=== PATIENT | female | born 1990 | race Caucasian/White ===

== ENCOUNTER 2018-05-16 10:23 | Outpatient (CLI) | payer OTHER ==
[2018-05-16 11:04] LABS: BASOPHILS % (AUTO) 0.5 % (0.0-2.0); EOSINOPHILS # (AUTO) 0.2 K/uL (0-0.4); EOSINOPHILS % (AUTO) 3.6 % (0.0-4.0); HEMATOCRIT 39.7 % (36-48); LYMPHOCYTES # (AUTO) 1.4 K/uL (2.5-16.5); MEAN CORPUSCULAR HEMOGLOBIN 29 pg (27-31); MEAN CORPUSCULAR HGB CONC 33 g/dL (33-37); MEAN CORPUSCULAR VOLUME 88.2 fL (80-94); MONOCYTES # (AUTO) 0.4 K/uL (0.8-1.0); MONOCYTES % (AUTO) 5.8 % (1.7-9.3); NEUTROPHILS # (AUTO) 4.4 K/uL (1.8-7.7); NEUTROPHILS % (AUTO) 68.1 % (42.2-75.2); PLATELET COUNT (AUTO) 234 K/uL (140-450); RED CELL DISTRIBUTION WIDTH 14.2 % (11.6-13.7); WHITE BLOOD COUNT (AUTO) 6.4 K/uL (4.8-10.8)
[2018-05-16 11:25] LABS: ALBUMIN 3.7 g/dL (3.4-5.0); ANION GAP 9.4 (8-16); CARBON DIOXIDE 29.5 mmol/L (21-32); CHOL/HDL RATIO 2.4 (1-4.5); CREATININE 0.7 mg/dL (0.6-1.3); FREE T4 (FREE THYROXINE) 1.02 ng/dL (0.76-1.46); POTASSIUM 3.9 mmol/L (3.5-5.1); THYROID STIMULATING HORMONE 0.58 uIU/mL (0.34-3.74); TOTAL BILIRUBIN 0.3 mg/dL (0.0-1.0)
[2018-05-16 11:37] LABS: BILIRUBIN,URINE NEGATIVE (NEGATIVE); COLOR,URINE YELLOW (YELLOW); LEUKOCYTE ESTERASE ,URINE 1+ (NEGATIVE); NITRITE, URINE NEGATIVE (NEGATIVE); UGLUCOSE NEGATIVE (NEGATIVE)
[2018-05-16 11:42] LABS: BLOOD, URINE 1+ (NEGATIVE); RBC,URINE 0-5 (RARE) /HPF (0-5); WBC,URINE 0-5 (RARE) /HPF (0-5)
[2018-05-16 11:44] LABS: APPEARANCE,URINE SLIGHTLY HAZY (CLEAR)
== END 2018-05-16 16:56 | disposition home or self-care (01) ==
LOC: MLB 10:23
PROVIDERS: ATTEND Family Medicine Geriatric Medicine
DX: Z13.1 Encounter for screening for diabetes mellitus (principal); Z13.228 Encounter for screening for other metabolic disorders; Z13.21 Encounter for screening for nutritional disorder; Z13.0 Encounter for screening for diseases of the blood and blood-forming organs and certain disorders involving the immune mechanism; Z13.220 Encounter for screening for lipoid disorders
CPT/HCPCS: 36415; 80053; 81001; 82306; 83036; 84439; 84443; 85025; 87086

== ENCOUNTER 2018-09-07 18:22 | Emergency (ER) | payer OTHER ==
[~2018-09-07] VITALS: Ht 157.5 cm; Wt 73.0 kg
[2018-09-07 18:27] VITALS: BP 132/83
--- NOTE | 2018-09-07 18:34 | NUR ---
27 Y FEMALE BIB SELF AND REPORTS SHE HAS 2 CAVITIES AND ISN'T ABLE TO SEE THE DENTIST UNTIL TOMORROW. PT REPORTS INTERMITENT SHARP/THROBING PAIN IS AT 7/10 THAT RADIATES UP TO FOREHEAD. PT TX WITH IBUPROFEN WITH LITTLE RELIEF. VSS AT THIS TIME. PT [id number]. BED IS DOWN, LOCKED, BED RAIL X 1 ,ERMD TO SEE PT. MEDHX:DENIES RX:IBUPROFEN, ABX
--- NOTE | 2018-09-07 18:40 | NUR ---
DR CARVER AT BEDSIDE
--- NOTE | 2018-09-07 18:48 | NUR ---
Patient discharged with v/s stable. Written and verbal after care instructions given and explained. Patient alert, oriented and verbalized understanding of instructions. Ambulatory with steady gait. All questions addressed prior to discharge. ID band removed. Patient advised to follow up with PMD. Rx of NORCO given. Patient educated on indication of medication including possible reaction and side effects. Opportunity to ask questions provided and answered. PT INSTRUCTED NOT TO DRIVE AFTER TAKING PILL.
[2018-09-07 18:49] VITALS: BP 132/83
== END 2018-09-07 18:48 | disposition home or self-care (01) ==
LOC: MED 18:22
DX: K02.9 Dental caries, unspecified (principal)
CPT/HCPCS: 99283